=== PATIENT | male | born 1955 | race Caucasian/White ===

== ENCOUNTER 2019-09-30 16:23 | Emergency (ER) | payer OTHER, MEDICARE, SELFPAY ==
[2019-09-30 16:34] VITALS: PULSE 64; RESP 15; O2SAT 97; BMI 27.3
[2019-09-30 20:06] VITALS: BP 177/97; PULSE 71; RESP 16; TEMP 36.7; O2SAT 96
[2019-09-30 20:12] VITALS: BP 177/97; PULSE 63; RESP 19; O2SAT 98
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
[2019-09-30 21:00] VITALS: BP 159/97; PULSE 66; RESP 18; O2SAT 98
[2019-09-30] MEDS: HYDROMORPHONE 0.5 MG INJ IV (21:29)
[2019-09-30] MEDS: HYDROCODONE/ACET 5/325 PREPACK 1 BOTTLE MISC (21:29)
== END 2019-09-30 21:40 | disposition home or self-care (01) ==
PROVIDERS: Emergency Provider Emergency Medicine; Family Provider Physician Assistant; PCP Physician Assistant
DX: S02.2XXA Fracture of nasal bones, initial encounter for closed fracture (principal); S02.40DA Maxillary fracture, left side, initial encounter for closed fracture; S02.19XA Other fracture of base of skull, initial encounter for closed fracture; V29.40XA Motorcycle driver injured in collision with unspecified motor vehicles in traffic accident, initial encounter
CPT/HCPCS: 70450; 70486; 96374; 99282; 99284; J1170

== ENCOUNTER → 2019-11-10 08:35 | Outpatient (CLI) | payer MEDICARE, SELFPAY ==
[2019-11-10 09:37] LABS: Add Manual Diff / Slide Review NO; Basophils Absolute Auto 0 /uL (0-100); Basophils Percent Auto 0.3 % (0-2); Eosinophils Absolute Auto 200 /uL (0-450); Hematocrit 37.5 % (41-53); Lymphocytes Absolute Auto 2000 /uL (1100-4500); Lymphocytes Percent Auto 42.2 % (25-40); Mean Corpuscular HGB Conc 34.5 % (30-36); Mean Corpuscular Hemoglobin 31.5 PG (26-34); Mean Corpuscular Volume 91.3 fL (80-100); Monocytes Absolute Auto 900 /uL (0-900); Monocytes Percent Auto 19.3 % (3-14); Neutrophils Absolute Auto 1600 /uL (1500-7000); Neutrophils Percent Auto 34.2 % (50-75); Platelet Count 322 X10^3/uL (150-400); Red Blood Cell Count 4.11 X10^6/uL (4.5-5.9); Red Cell Distribution Width 13.5 % (11.6-14.8); White Blood Cell Count 4.6 X10^3/uL (4.5-11.0)
[2019-11-10 09:53] LABS: Alanine Aminotransferase 22 IU/L (<50); Albumin 4.4 g/dL (3.5-5.0); Albumin Globulin Ratio 1.2 (1.0-2.8); Alkaline Phosphatase 67 U/L (38-126); Aspartate Aminotransferase 34 IU/L (17-59); BUN Creatinine Ratio 23.1 (6-22); Bilirubin Total 0.6 mg/dL (0.2-1.3); Blood Urea Nitrogen 18 mg/dL (9-20); Calcium 9.7 mg/dL (8.4-10.2); Carbon Dioxide 28 mmol/L (22-32); Chloride 105 mmol/L (98-107); Cholesterol 162 mg/dL (140-199); Estimated Glomerular Filt Rate > 60.0 mL/min (>60); Globulin 3.6 g/dL (1.7-4.1); Glucose 99 mg/dL (80-110); HDL Cholesterol 50 mg/dL (40-60); HEMOLYSIS < 15 (0-50); LDL Cholesterol Calculated 103 mg/dL (<100); Potassium 4.3 mmol/L (3.4-5.1); Sodium 139 mmol/L (137-145); Triglycerides 47 mg/dL (35-150)
[2019-11-10 09:54] LABS: C-Reactive Protein Quant < 0.5 mg/dL (<1.0)
[2019-11-10 10:21] LABS: Prostate Specific Antigen Scrn 0.644 ng/mL (0.1-4.0)
[2019-11-10 10:27] LABS: Erythrocyte Sedimentation Rate 20 MM/HR (0-15)
[2019-11-12 20:09] LABS: ANA Screen, IFA Positive (.); Speckled Pattern >1:1280 (.)
== END ==
PROVIDERS: Family Provider Physician Assistant; PCP Physician Assistant; Referring Provider Physician Assistant; Visit Provider Physician Assistant
DX: Z12.11 Encounter for screening for malignant neoplasm of colon (principal); E78.2 Mixed hyperlipidemia; I73.9 Peripheral vascular disease, unspecified; Z12.5 Encounter for screening for malignant neoplasm of prostate
CPT/HCPCS: 36415; 80053; 80061; 85025; 85651; 86038; 86140; G0103

== ENCOUNTER → 2020-12-04 08:54 | Outpatient (CLI) | payer MEDICARE, SELFPAY ==
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
== END ==
PROVIDERS: Family Provider Physician Assistant; Referring Provider Physician Assistant; Visit Provider Physician Assistant
DX: S92.512A Displaced fracture of proximal phalanx of left lesser toe(s), initial encounter for closed fracture (principal)
CPT/HCPCS: 73660

== ENCOUNTER → 2021-09-12 09:50 | Outpatient (CLI) | payer MEDICARE, SELFPAY ==
--- NOTE | 2021-09-12 | DI.US.S_ITS ---
PROCEDURE: US SOFT TISSUE HEAD AND NECK INDICATIONS: LOCALIZED ENLARGED LYMPH NODES TECHNIQUE: Real-time scanning was performed of the neck region of interest, with image documentation. COMPARISON: None. FINDINGS: Normal-sized lymph node corresponds to palpable lesion. Palpable lymph nodes has normal fatty hilum. IMPRESSION: Single normal sized sonographically normal appearing lymph node identified in the area of clinical concern. Dictated by: Zoila Mosquera MD, PhD on 09/12/2021 at 11:51 Approved by: Zoila Mosquera MD, PhD on 09/12/2021 at 11:52
== END ==
PROVIDERS: Family Provider Physician Assistant; PCP Physician Assistant; Referring Provider Physician Assistant; Visit Provider Physician Assistant
DX: R59.0 Localized enlarged lymph nodes (principal)
CPT/HCPCS: 76536

== ENCOUNTER → 2021-09-24 08:03 | Outpatient (CLI) | payer MEDICARE, SELFPAY | PROVIDERS: Family Provider Physician Assistant; PCP Physician Assistant; Referring Provider Physician Assistant; Visit Provider Physician Assistant | DX: Z13.6 Encounter for screening for cardiovascular disorders (principal); Z53.20 Procedure and treatment not carried out because of patient's decision for unspecified reasons ==

== ENCOUNTER 2023-01-19 10:35 | Emergency (ER) | payer MEDICARE, SELFPAY ==
[2023-01-19 10:41] VITALS: BP 162/86; PULSE 55; RESP 18; TEMP 36.5; O2SAT 99; BMI 25.8
--- NOTE | 2023-01-19 10:49 | DI.RAD.S_ITS ---
PROCEDURE: XR RIBS RT MIN 3V W CXR 1V INDICATIONS: r/o fx TECHNIQUE: 2 views of the left ribs were acquired, along with a single view chest. COMPARISON: None. FINDINGS: Surgical changes and devices: None. Bones and chest wall: No fractures or dislocations. No suspicious bony lesions. Overlying soft tissues appear unremarkable. Lungs and pleura: No pleural effusions or pneumothorax. Lungs appear clear. Mediastinum: Mediastinal contours appear normal. Heart size is normal. IMPRESSION: No displaced rib fracture or pneumothorax. Dictated by: Zbigniew Salazar M.D. on 01/19/2023 at 11:21 Approved by: Zbigniew Salazar M.D. on 01/19/2023 at 11:22
--- NOTE | 2023-01-19 11:38 | ED_ITS ---
HPI - Recheck/Abnormal Lab/Rx <Deonte Fernandez PA-C - Last Filed: 01/19/23 12:12> General Chief Complaint: Recheck/Abnormal Lab/Rx Stated Complaint: sharp pain RT side/HX hit to back T-7 Time Seen by Provider: 01/19/23 11:12 Source: patient Mode of arrival: Ambulatory History of Present Illness HPI narrative: 67-year-old male with past medical history BPH presents to the ED with right- sided rib pain for 1 week. Patient suffered a mechanical fall, which caused him to strike the back right ribs against a tire. Patient states that his right back ribs started out being painful, however over the last few days, the pain has shifted to the right lateral aspect of the front ribs. Patient states that his ribs feel tender to touch and with inspiration. Patient denies shortness of breath, lightheadedness, dizziness, syncope. Related Data Allergies Allergy/AdvReac Type Severity Reaction Status Date / Time Penicillins Allergy Unknown Verified 01/19/23 11:49 Review of Systems <Deonte Fernandez PA-C - Last Filed: 01/19/23 12:12> Constitutional Constitutional: Denies chills, Denies fatigue, Denies fever(s), Denies frequent falls, Denies lethargy and Denies weakness Eyes Eyes: Denies change in vision, Denies eye discharge, Denies irritation and Denies loss of vision ENT Ears, Nose, Mouth, and Throat: Denies change in voice, Denies dizziness, Denies neck pain, Denies sore throat and Denies throat swelling Cardiovascular Cardiovascular: Denies chest pain, Denies irregular heart rhythm, Denies li ghtheadedness, Denies palpitations, Denies dyspnea, Denies dyspnea on exertion and Denies orthopnea Comments: Right-sided rib pain Respiratory Respiratory: Denies cough, Denies dyspnea, Denies dyspnea on exertion and Denies wheezing Gastrointestinal Gastrointestinal: Denies abdominal pain, Denies change in bowel habits, Denies diarrhea, Denies nausea and Denies vomiting Musculoskeletal Musculoskeletal: Denies neck pain and Denies numbness Integumentary/Breasts Skin/Breast: Denies pruritus, Denies erythema, Denies rash and Denies wounds Neurologic Neurologic: Denies behavioral changes, Denies confusion, Denies dizziness, Denies frequent falls, Denies loss of vision, Denies numbness and Denies weakn ess Psychiatric Psychiatric: Denies anxiety, Denies behavioral changes, Denies confusion, Denies depression, Denies homicidal ideation and Denies suicidal ideation Endocrine Endocrine: Denies fatigue, Denies flushing and Denies palpitations Hematologic/Lymphatic Hematologic/Lymphatic: Denies easy bruising Allergic/Immunologic Allergic/Immunologic: Denies urticaria, Denies throat swelling and Denies wh eezing Patient History <Deonte Fernandez PA-C - Last Filed: 01/19/23 12:12> Social History Smoking Status: Former smoker Smoking Status: Former smoker Substance Use Type: does not use Exam <Deonte Fernandez PA-C - Last Filed: 01/19/23 12:12> Narrative Exam Narrative: Const General:?cooperative, healthy appearing and comfortable [facility] Head:?normal to inspection Ears:?hearing grossly normal bilaterally Nose:?external nose normal Face and sinus:?normal facial exam and sinuses nontender Mouth:?oral mucosae normal Throat:?posterior oropharynx normal Eyes General:?appearance normal, both eyes and all related structures Neck Neck:?normal visual inspection and no lymphadenopathy noted Resp Effort & Inspection:?normal respiratory effort Auscultation:?clear to auscultation bilaterally Cardio Rate:?regular rate Rhythm:?regular rhythm Musculoskeletal Tenderness to palpation of lower right,anterior lateral ribs. No bruising or deformities. Neuro General:?patient alert, patient awake and patient oriented x3 Initial Vital Signs Initial Vital Signs: Vital Signs Temperature 97.7 F 01/19/23 10:41 Pulse Rate 55 L 01/19/23 10:41 Respiratory Rate 18 01/19/23 10:41 Blood Pressure 162/86 H 01/19/23 10:41 Pulse Oximetry 99 01/19/23 10:41 Oxygen Delivery Method Room Air 01/19/23 10:41 <Paul Dale DO - Last Filed: 01/19/23 12:15> Initial Vital Signs Initial Vital Signs: Vital Signs Temperature 97.7 F 01/19/23 10:41 Pulse Rate 55 L 01/19/23 10:41 Respiratory Rate 18 01/19/23 10:41 Blood Pressure 162/86 H 01/19/23 10:41 Pulse Oximetry 99 01/19/23 10:41 Oxygen Delivery Method Room Air 01/19/23 10:41 Course <Deonte Fernandez PA-C - Last Filed: 01/19/23 12:12> Orders Ordered: ED Orders 01/19/23 10:49 XR ribs RT min 3V w CXR1V Stat Vital Signs Vital signs: Vital Signs - 8 hr 01/19/23 10:41 Temperature 97.7 F Pulse Rate 55 L Respiratory Rate 18 Blood Pressure 162/86 H Pulse Oximetry 99 Oxygen Delivery Method Room Air <Paul Dale DO - Last Filed: 01/19/23 12:15> Orders Ordered: ED Orders 01/19/23 10:49 XR ribs RT min 3V w CXR1V Stat Vital Signs Vital signs: Vital Signs - 8 hr 01/19/23 10:41 Temperature 97.7 F Pulse Rate 55 L Respiratory Rate 18 Blood Pressure 162/86 H Pulse Oximetry 99 Oxygen Delivery Method Room Air MDM - Recheck/Abnormal Lab/Rx <Deonte Fernandez PA-C - Last Filed: 01/19/23 12:12> MDM Narrative Medical decision making narrative: 67-year-old male with past medical history BPH presents to the ED with right- sided rib pain for 1 week. Concern for rib fracture versus rib contusion versus other. Obtained rib x-rays which showed no fractures or dislocations or other acute findings. Patient's symptoms likely due to a rib contusion. Recommend lidocaine patches, ibuprofen for symptom relief. Recommend follow-up with PCP as soon as possible. ED return precautions were discussed with patient. Patient verbalized understanding. Medical records reviewed: Yes Discharge Plan Departure Patient Disposition: Home Clinical Impression: Rib pain Instructions: DI for Rib Contusion Activity Restrictions/Additional Instructions: You were evaluated in the ED today for right-sided rib pain. Your x-ray did not show any abnormalities including fractures or dislocations. Your symptoms are likely due to a rib contusion or bruise from the injury. You may apply lido janny patches sold in drug stores under the trade name Salonpas. You may take 600 mg of ibuprofen 3 times a day with food for the pain and inflammation. Please follow-up with your primary care provider as soon as possible. Return to the ED if you have worsening symptoms, chest pain, shortness of breath. Referrals: Miscellaneous,[facility] [Primary Care Provider] - Stand Alone Forms: Patient Portal/API ED Sign-out <Paul Dale, DO - Last Filed: 01/19/23 12:15> Cosign ED Attending Cosignature Attestation: Dr Dale Co-Sign Statement: I was available for consultation during this patient's emergency department visit. This chart is signed by myself for administrative purposes only. I did not have direct contact with this patient during this visit. They were seen independently by the APC.
== END 2023-01-19 11:55 | disposition home or self-care (01) ==
PROVIDERS: Emergency Provider Student in an Organized Health Care Education/Training Program; Family Provider Physician Assistant
DX: R07.81 Pleurodynia (principal); W19.XXXA Unspecified fall, initial encounter
CPT/HCPCS: 71101; 99283

== ENCOUNTER 2023-04-18 10:23 | Emergency (ER) | payer MEDICARE, SELFPAY ==
[2023-04-18 10:23] VITALS: BP 206/95; PULSE 58; RESP 14; TEMP 36.4; O2SAT 96; BMI 25.8
[2023-04-18 10:29] VITALS: BP 206/95; PULSE 57; O2SAT 96
[2023-04-18 10:30] VITALS: PULSE 62; O2SAT 97
[2023-04-18 10:31] VITALS: BP 170/88; PULSE 62; O2SAT 96
[2023-04-18 10:36] LABS: Add Manual Diff / Slide Review NO; Basophils Absolute Auto 0 /uL (0-100); Basophils Percent Auto 0.7 % (0-2); Eosinophils Absolute Auto 200 /uL (0-450); Eosinophils Percent Auto 3.4 % (2-4); Hematocrit 40.9 % (41-53); Hemoglobin 13.6 g/dL (13.5-17.5); Lymphocytes Absolute Auto 2200 /uL (1100-4500); Lymphocytes Percent Auto 30.2 % (25-40); Mean Corpuscular HGB Conc 33.3 % (30-36); Mean Corpuscular Hemoglobin 30.4 PG (26-34); Mean Corpuscular Volume 91.3 fL (80-100); Monocytes Absolute Auto 1300 /uL (0-900); Monocytes Percent Auto 17.4 % (3-14); Neutrophils Absolute Auto 3500 /uL (1500-7000); Neutrophils Percent Auto 48.3 % (50-75); Platelet Count 330 X10^3/uL (150-400); Red Blood Cell Count 4.48 X10^6/uL (4.5-5.9); Red Cell Distribution Width 13.5 % (11.6-14.8); White Blood Cell Count 7.3 X10^3/uL (4.5-11.0)
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
[2023-04-18 10:47] LABS: HEMOLYSIS < 15 (0-50); Potassium 4.2 mmol/L (3.4-5.1)
[2023-04-18 10:49] LABS: Alanine Aminotransferase 26 IU/L (<50); Albumin 4.6 g/dL (3.5-5.0); Alkaline Phosphatase 50 U/L (38-126); Aspartate Aminotransferase 38 IU/L (17-59); BUN Creatinine Ratio 27.5 (6-22); Bilirubin Total 0.9 mg/dL (0.2-1.3); Blood Urea Nitrogen 22 mg/dL (9-20); Calcium 10.1 mg/dL (8.4-10.2); Carbon Dioxide 26 mmol/L (22-32); Chloride 101 mmol/L (98-107); Estimated Glomerular Filt Rate > 60 mL/min (>60); Globulin 4.5 g/dL (1.7-4.1); Glucose 93 mg/dL (80-110); Sodium 137 mmol/L (137-145); Total Protein 9.1 g/dL (6.3-8.2)
[2023-04-18 10:50] LABS: Lipase 84 U/L (23-300)
[2023-04-18 11:00] VITALS: PULSE 60; O2SAT 92
[2023-04-18 11:01] VITALS: BP 146/86; PULSE 59; O2SAT 93
== END 2023-04-18 11:30 | disposition home or self-care (01) ==
PROVIDERS: Emergency Provider Emergency Medicine; Family Provider Physician Assistant
DX: K57.92 Diverticulitis of intestine, part unspecified, without perforation or abscess without bleeding (principal); R10.32 Left lower quadrant pain
CPT/HCPCS: 36415; 80053; 81003; 83690; 85025; 99283

== ENCOUNTER 2023-05-05 08:52 | Emergency (ER) | payer MEDICARE, SELFPAY ==
[2023-05-05 09:09] VITALS: BP 149/93; PULSE 56; RESP 15; TEMP 36.8; O2SAT 98; BMI 27.3
--- NOTE | 2023-05-05 09:13 | DI.RAD.S_ITS ---
PROCEDURE: XR SHOULDER RT MIN 2V INDICATIONS: shoulder pain TECHNIQUE: 3 views of the shoulder were acquired. COMPARISON: None. FINDINGS: Bones: No fractures or dislocations. No suspicious bony lesions. Visualized ribs appear intact. Soft tissues: No suspicious soft tissue calcifications. IMPRESSION: No acute fracture. No osseous lesion. If symptoms and/or clinical suspicion for pathology persist, further assessment with repeat, or advanced imaging (e.g., CT, MRI, or bone scan) may be helpful for further assessment. Dictated by: nAgi Liriano M.D. on 05/05/2023 at 9:31 Approved by: Angi Liriano M.D. on 05/05/2023 at 9:31
--- NOTE | 2023-05-05 09:47 | PC.NURSE ---
Pt very tender to touch on right shoulder. Pt denies injury
--- NOTE | 2023-05-05 10:22 | ED_ITS ---
HPI - Extremity Problem General Chief complaint: Extremity Problem,Nontraumatic Stated complaint: rt arm hurts alot Time Seen by Provider: 05/05/23 10:21 Source: patient Mode of arrival: Ambulatory History of Present Illness HPI Narrative: Patient is a healthy 67-year-old male who presents with right shoulder pain. He is right-hand dominant. He denies any injury. He is accident some upper arm achiness. Definitely hurts with movement he can not lift his arm over his head. It is tender to palpation. No fever or chills. He can not find a comfortable position. He was taking some ibuprofen but it was not really helping. He had a n old narcotic medication to try and help him sleep last night he reports that that did not really help either. No numbness tingling or weakness Related Data Previous Rx's Medication Instructions Recorded cyclobenzaprine 5 mg tablet 5 mg PO TID PRN muscle spasm #10 05/05/23 tabs naproxen 500 mg tablet 500 mg PO BID PRN pain #30 tabs 05/05/23 Allergies Allergy/AdvReac Type Severity Reaction Status Date / Time Penicillins Allergy Unknown Verified 05/05/23 09:09 Patient History Social History Smoking Status: Former smoker Smoking Status: Former smoker alcohol intake frequency: holidays/special occasions only Substance Use Type: does not use Exam Initial Vital Signs Initial Vital Signs: Vital Signs Temperature 98.3 F 05/05/23 09:09 Pulse Rate 56 L 05/05/23 09:09 Respiratory Rate 15 05/05/23 09:09 Blood Pressure 149/93 H 05/05/23 09:09 Pulse Oximetry 98 05/05/23 09:09 Oxygen Delivery Method Room Air 05/05/23 09:09 GENERAL: Alert 67-year-old male appears uncomfortable HEENT: Head atraumatic,EOMI, pupils reactive, face symmetric, moist mucous membranes CARDIOVASCULAR: Peripheral pulses intact RESPIRATORY: No respiratory distress speaks in full sentences EXTREMITIES: Normal range of motion, no clubbing or edema. Neurovascularly intact Right upper extremity definitely tender over the pectoralis insertion site. No rash intact. Significant decreased range of motion. Nontender over the scaphoid. Normal range of motion in elbow and wrist. NEUROLOGICAL: Alert and oriented x4.Normal gait and speech. SKIN: Warm, dry, no laceration, no petechiae, no rashes or lesions. Course Orders Ordered: ED Orders 05/05/23 09:13 XR shoulder RT min 2V Stat Discontinued Medications Ketorolac Tromethamine (Ketorolac 30 Mg/Ml Vial) 30 mg IM NOW ONE Stop: 05/05/23 10:42 Last Admin: 05/05/23 11:02 Dose: 30 mg Documented By: CHAVA Vital Signs Vital signs: Vital Signs - 8 hr 05/05/23 09:09 05/05/23 11:14 Temperature 98.3 F Pulse Rate 56 L 56 L Respiratory Rate 15 Blood Pressure 149/93 H 159/85 H Pulse Oximetry 98 100 Oxygen Delivery Method Room Air Room Air MDM - Extremity (Nontraumatic) Imaging Data Extremity x-ray #1: Radiologist's Impression: PROCEDURE: XR SHOULDER RT MIN 2V INDICATIONS: shoulder pain TECHNIQUE: 3 views of the shoulder were acquired. COMPARISON: None. FINDINGS: Bones: No fractures or dislocations. No suspicious bony lesions. Visualized ribs appear intact. Soft tissues: No suspicious soft tissue calcifications. IMPRESSION: No acute fracture. No osseous lesion. If symptoms and/or clinical suspicion for pathology persist, further assessment with repeat, or advanced imaging (e.g., CT, MRI, or bone scan) may be helpful for further assessment. Dictated by: Angi Liriano M.D. on 05/05/2023 at 9:31 [facility] Narrative Medical decision making narrative: Patient 67-year-old male presents today with right shoulder pain. It has been ongoing for last couple of days he denies any sort of injury. Definitely repeat reproducible definite decreased range of motion. Suspect musculoskeletal. X- ray has been reviewed and negative. More like a tendinitis not necessarily a bursitis. No fever unlikely sepsis. Neurovascularly intact. At this time supportive care only. May require outpatient treatment and possible further imaging Discharge Plan Departure Patient Disposition: Home Clinical Impression: Tendinitis Instructions: DI for Shoulder Tendinopathy Activity Restrictions/Additional Instructions: *You have been diagnosed with possible tendinitis *What to do: At this time likely an inflammatory process. Wear sling as needed but encourage movement as often as possible. May require outpatient MRI *Continue to take medications as directed Naproxen 500 mg twice a day for 14 days with food Flexeril 5 mg every 8 hours needed for muscle spasm, can cause drowsiness and sleepiness *Follow up with your primary care provider in 2-3 days or call [phone] *Return to ER if you should have increasing weakness pain fever chills or any new, worsening or concerning symptoms Prescriptions: New naproxen 500 mg tablet 500 mg PO BID PRN (Reason: pain) Qty: 30 0RF Rx Instructions: administer with food or milk cyclobenzaprine 5 mg tablet 5 mg PO TID PRN (Reason: muscle spasm) Qty: 10 0RF Referrals: Miscellaneous,Doctor, MD [Primary Care Provider] - Stand Alone Forms: Patient Portal/API
[2023-05-05] MEDS: KETOROLAC 30 MG/ML VIAL IM (11:02)
[2023-05-05 11:14] VITALS: BP 159/85; PULSE 56; O2SAT 100
== END 2023-05-05 11:15 | disposition home or self-care (01) ==
PROVIDERS: Emergency Provider Emergency Medicine; Family Provider Physician Assistant
DX: M77.9 Enthesopathy, unspecified (principal)
CPT/HCPCS: 73030; 96372; 99283; J1885

== ENCOUNTER → 2023-05-15 11:14 | Outpatient (CLI) | payer MEDICARE, SELFPAY ==
[2023-05-15 12:16] LABS: Cholesterol 213 mg/dL (140-199); HDL Cholesterol 41 mg/dL (40-60); LDL Cholesterol Calculated 161 mg/dL (<100); Triglycerides 54 mg/dL (35-150)
[2023-05-15 12:49] LABS: Thyroid Stimulating Hormone 1.41 uIU/mL (0.47-4.68)
[2023-05-15 13:04] LABS: Vitamin B12 440 pg/mL (239-931)
[2023-05-15 13:05] LABS: Hep C Virus Ab w/Reflex Quant NEGATIVE s/c (NEGATIVE)
[2023-05-15 13:24] LABS: Urine N gonorrhoeae NOT DETECTED
[2023-05-15 13:37] LABS: Urine Chlamydia NOT DETECTED
[2023-05-15 14:01] LABS: HIV 1 & 2 Ab/Ag 4th Gen Combo NEGATIVE (NEGATIVE)
== END ==
PROVIDERS: Family Provider Physician Assistant; PCP Family Medicine; Referring Provider Family Medicine; Visit Provider Family Medicine
DX: Z13.9 Encounter for screening, unspecified (principal)
CPT/HCPCS: 36415; 80061; 82607; 84443; 86803; 87389; 87491; 87591